=== PATIENT | male | born 1980 | race Caucasian/White ===

== ENCOUNTER 2019-01-31 12:35 | Emergency (ER) | payer BC ==
[2019-01-31 12:51] VITALS: BP 136/72; PULSE 78; TEMP 97; BMI 30.9
[2019-01-31] MEDS ORDERED: CEPHALEXIN MONOHYDRATE 500 MG CAPSULE (UD) PO ONE (13:07)
[2019-01-31] MEDS ORDERED: CEPHALEXIN MONOHYDRATE 500 MG CAPSULE (UD) ONE (13:17)
--- NOTE | 2019-01-31 13:22 | PDOC ---
History of Present Illness - General Chief Complaint: Laceration Stated Complaint: LACERATION ON LT THUMB Time Seen by Provider: 01/31/19 12:51 History Source: Patient Exam Limitations: No Limitations Past History - Past Medical History Allergies/Adverse Reactions: Allergies Allergy/AdvReac Type Severity Reaction Status Date / Time No Known Allergies Allergy Verified 01/31/19 12:52 Home Medications: Ambulatory Orders Cephalexin Monohydrate [Keflex -] 500 mg PO BID #13 capsule 01/31/19 COPD: No - Immunization History Immunization Up to Date: Yes - Psycho Social/Smoking Cessation Hx Smoking History: Current every day smoker Information on smoking cessation initiated: No *Physical Exam - Vital Signs Last Vital Signs Temp Pulse Resp BP Pulse Ox 97 F L 78 18 136/72 99 01/31/19 12:48 01/31/19 12:48 01/31/19 12:48 01/31/19 12:48 01/31/19 12:48 - Physical Exam General Appearance: No: Apparent Distress Extremity: positive: Other (around 1 cm laceration to distal aspect of L thumb, nail and nailbed intact, FROM of L thumb) Integumentary: negative: Swelling, Ecchymosis, Bruising Neurologic: positive: Alert Medical Decision Making - Medical Decision Making 38 y/o M with no sig pmh presents w/ cut to distal end of L thumb from last night around 7:30 PM. States cut it with kitchen knife while carving pumpkins. States someone on family insisted he come in for evaluation. Denies fever, discharge, redness. Last tetanus was last year. Given patient presenting 18 hrs post laceration, will defer placing stitches Site around wound cleaned with hydrogen peroxide and steri-strip placed over site Will place on Keflex to prevent infection 01/31/19 13:17 Discharge - Discharge Information Problems reviewed: Yes Clinical Impression/Diagnosis: Laceration of thumb Qualifiers: Encounter type: initial encounter Damage to nail status: without damage Foreign body presence: without foreign body Laterality: left Qualified Code(s): S61.012A - Laceration without foreign body of left thumb without damage to nail , initial encounter Disposition: HOME - Admission No - Additional Discharge Information Prescriptions: Cephalexin Monohydrate [Keflex -] 500 mg PO BID #13 capsule Prescription Drug Monitoring Program (I-STOP) results: I-STOP not reviewed - Follow up/Referral - Patient Discharge Instructions Patient Printed Discharge Instructions: DI for Minor Laceration Additional Instructions: Thank you for choosing [facility]. It was a pleasure taking care of you. You may apply Bacitracin or Neosporin over site of cut Please take antibiotics as prescribed to prevent infection of finger Return to the Emergency Department if your symptoms worsen or persist, you have fever, redness, pustular discharge, streaking or other concerning symptoms. - Post Discharge Activity
== END 2019-01-31 13:30 | disposition home or self-care (01) ==
LOC: JERFT 12:35
DX: S61.012A Laceration without foreign body of left thumb without damage to nail, initial encounter (principal); W26.0XXA Contact with knife, initial encounter; Y93.G9 Activity, other involving cooking and grilling; Y92.018 Other place in single-family (private) house as the place of occurrence of the external cause; Y99.8 Other external cause status
CPT/HCPCS: 99281-25